=== PATIENT | female | born 2000 | race Caucasian/White ===

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

== ENCOUNTER 2019-07-24 05:30 | Outpatient (RCR) | payer BC ==
[~2019-07-24] VITALS: Ht 170 cm; Wt 61.3 kg
[~2019-07-24 05:30] MED LIST changes: +AMOX-355 PO; -GADOBUTROL 7.5 MMOL/7.5 ML (GADAVIST) VIAL IV ONE; +PRD20T PO
== END 2019-07-24 14:42 | disposition home or self-care (01) ==
LOC: PREOP 05:30
PROVIDERS: ATTEND Obstetrics & Gynecology
DX: Z01.818 Encounter for other preprocedural examination (principal); Z11.59 Encounter for screening for other viral diseases
CPT/HCPCS: 87635

== ENCOUNTER 2019-07-28 06:12 | Day surgery (SDC) | payer BC ==
[~2019-07-28] VITALS: Ht 170 cm; Wt 61.3 kg
[2019-07-28] VITALS (10 sets, daily range): BP systolic 100–111; BP diastolic 63–90
--- OUTSIDE RECORDS SUMMARY | 2019-07-28 06:17 | XMS REPORT ---
Author Author [facility] [facility] [employer] [facility] [employer] [facility] Address [address] [address] Care Team Providers Care Industrial/Organizational Psychologist Name Role Phone LO KEENE DO Unavailable Unavailable ASAD GONZALEZ Unavailable PCP, NONE Unavailable Unavailable QUICK, LON Unavailable Unavailable QUICK, LON Unavailable Unavailable QUICK, LON Unavailable Unavailable MOHAMUD BAIRD DO Unavailable Unavailable Unavailable Unavailable Unavailable Unavailable Unavailable Unavailable Unavailable Unavailable Unavailable Unavailable Allergies Normalized Allergy Reported Date of Reaction(s) Care Provider Facility Allergy Type classification allergen Allergy Onset DA (6 Unclassified No Known Drug 11-07-2012 - no information LO Not Available sources.) Allergies DO JASSI (06081) Medications Medication Ingredient Drug Dose Dates Status Sig Sig Care Class(es) (Normalized) (Original) Provid er amoxicillin Amoxicillin Penicillin- 02-12-19 Complete take 10 Amoxicillin/ Peter 500 mg / / class 19 d tablets by Potassium J Cardiac Monitor clavulanate Clavulanate Antibacteri mouth twice Clav Ba deangelo 125 mg oral al daily (Augmentin (no tablet (1 500-125 phone) source.) Tablet) 1 Each Tablet 1 Each ORAL Twice A Day 10 Tab 02/12/18 predniSONE predniSONE no 40 mg 02-12-19 Complete take 2 Pre dnisone Peter 20 mg oral information 19 d tablets by 20 Mg Tab 40 J Cardiac Monitor tablet (1 mouth once Mg ORAL Abrams source.) daily Daily 6 Tab (no Take 3 phone) tabs(60mg)da moreno, decrease by 1/2 tab(10mg)akil ly. 02/12/18 Problems Active Problems Problem Normalized Date Last Normalized Normalized Provider Fa cility Classification Problem(s) Recorded Problem Problem Sta tus Duration Attention-defi Attention-defi Chronic Active CHERELLE ABRAMS Not Available cit conduct cit (89776) and disruptive hyperactivity behavior disorder, disorders (2 unspecified sources.) type Chronic Bronchitis Episodic Active CHERELLE ABRAMS Not Avail able obstructive Translations: (59232) pulmonary [ BRONCHITIS, disease and NOT SPECIFIED bronchiectasis ACUTE OR (3 sources.) CH] Other upper Chronic Chronic Active ASAD SCHOELING Not Av ailable respiratory ethmoidal MD (06539) infections (2 sinusitis sources.) Translations: [ CHRONIC SPHENOIDAL SINUSITIS] Other Disorder of Chronic Active ASAD SCHOELING Not A vailable endocrine pituitary MD (37676) disorders (1 gland, source.) unspecified Open wounds of Open bite of Episodic Active CHERELLE ABRAMS No t Available extremities (4 left thumb (80579) sources.) without damage to nail, initial encounter Other Other Chronic Active no name no informatio n endocrine disorders of disorders (2 pituitary sources.) gland Disorders Other Chronic Active CHERELLE ABRAMS Not Availab le usually specified (77644) diagnosed in behavioral and infancy emotional childhood or disorders with adolescence (2 onset usually sources.) occurring in childhood and adolescence Past or Other Problems Problem Normalized Date Last Normalized Normalized Provider Fa cility Classification Problem(s) Recorded Problem Problem Sta tus Duration External cause Bitten by no information no information CHERELLE FRITZ Not Available codes: raccoon, (66377) Natural/enviro initial nment (2 encounter sources.) Other Other symptoms Episodic Completed LO Not Raissa ilable connective referable to JASSI , DO (42079) tissue disease joint, lower (3 sources.) leg Unclassified no information no information no information ASAD SCHOELING [employer] [address] (1 source.) [address] [facility] (08967) Procedures The data below is from unstructured sourcesNo procedure information available. Immunizations Normalized Immunization Date Notes Care Provider Facili ty Immunization meningococcal 07-12-2018 no information no name [facility] (groups A, C, Y and - [facility] (91331) W-135) diphtheria toxoid conjugate vaccine (MCV4P) vaccine no information ASAD SCHOELING [address] [address] Translations: [ [facility] vaccine] (01565) Results The data below is from unstructured sourcesNo relevant diagnostic test, laboratory data and/or discharge summary information available. Vital Signs The data below is from unstructured sources Vital Response Date/Time Temperature (Fahrenheit) 97.7 degree s F (97.6 - 99.5) 02/12/2018 5:40pm Temperature (Calculated Celsius) 36. 40625 degrees C (36.4 - 37.5) 02/12/2018 5:40pm Temperature Source Oral 02/12/2018 5:40pm Pulse Rate (Adolescent 12-19yrs) 68 bpm (56 - 106) 02/12/2018 5:40pm O2 Sat by Pulse Oximetry 100 % (88 - 100) 02/12/2018 5:40pm Respiratory Rate (Adolescent 12-19yrs) 18 bpm (15 - 20) 02/12/2018 5:40pm Blood Pressure / Blood Pressure Systolic (Adolescent 12-19yrs) 115 mm Hg (115 - 120) 02/12/2018 5:40pm Pain Numeric Pain Scale 3 5:40pm Height (Feet) 5 feet 09/2018 5:20pm Height (Inches) 4.00 inches 02/12/2018 5:20pm Height (Calculated Centimeters) 162. 312175 cm 02/12/2018 5:20pm Height Method Estimated 02/12/2018 5:20pm Weight (Pounds) 120 pounds 02/12/2018 5:20pm Weight (Calculated Kilograms) 54.431 085 kilograms 02/12/2018 5:20pm Calculated BMI 14.06 09/2018 5:20pm Weight Method Estimated 02/12/2018 5:20pm Interventions No Information Plan of Treatment The data below is from unstructured sources Discharge Date 02/12/18 5:37pm Disposition 01 HOME, SELF-CARE Condition at Discharge Stable Instructions/Education Provided Acut e Bronchitis, Adult (DC) Prescriptions See Medication Section Referrals ASAD GONZALEZ MD Order Date: Primary Care Physician Address: [address] [place] [id number] Additional Instructions/Education 1. Antibiotics and steroids as directed. Return to ER for any concerns. Goals No Information Social History Normalized Code Original Code Date Value no information no information no information Unknown if ever smoked Functional Status The data below is from unstructured sourcesNo functional status information available. Mental Status No Information Encounters Encounter Normalized Encounter Encounter Diagnosis Care Provi tamra Organization Date Type 02-12-2018 Emergency department no information CHERELLE Peña APRN BA DEANGELO no organization name - patient visit Work Phone: 02-12-2018 12-23-2016 Patient encounter no information no name no or ganization name 12-13-2016 Patient encounter no information no name no or ganization name 05-29-2014 Patient encounter no information no name no or ganization name 07-21-2019 Patient encounter no information MOHAMUD Campos [facility] procedure (no phone) [facility] (no phone) 03-07-2019 Patient encounter no information no name no or ganization name - procedure 03-07-2019 07-12-2018 Patient encounter no information no name no or ganization name procedure 02-12-2018 Patient encounter no information no name no or ganization name procedure Medical Equipment No Information Payers Normalized Payer Value [employer] Blue Shield no information [employer] [id number] ([id number]) Advance Directives Directive Response Recor ded Date/Time Advance Directives No 6:45pm Health Care Power of Leather Goods Sales Representative No 11/07/12 6:45pm Organ Donor No 11/07/12 6:45pm Chief Complaint and Reason for Visit Chief Complaint Nasal Problems Reason for Visit Raccoon bite Bronchitis Discharge Instructions No hospital discharge instruction information available. Additional Source Comments This clinical document has been generated using [employer] software that has been certified by the Office of the National Coordinator for Health Information Technology (ONC 15.99.04.3023.Diam.31.00.0.828711) and the National Committee for Web Producer (NCQA, as an eMeasure certified technology). FOR RECORDS PERTAINING TO PATIENTS WHO ARE OR HAVE BEEN ENROLLED IN A CHEMICAL D EPENDENCY/SUBSTANCE ABUSE PROGRAM, SOME INFORMATION MAY BE OMITTED. This clinica l summary was aggregated from multiple sources. Caution should be exercised in using it in the provision of clinical care. This summary normalizes information from multiple sources, and as a consequence, information in this document may ma terially change the coding, format and clinical context of patient data. In luke tion, data may be omitted in some cases. CLINICAL DECISIONS SHOULD BE BASED ON T HE PRIMARY CLINICAL RECORDS. [employer] provides no warranty or guara ntee of the accuracy or completeness of information in this document.The followi ng information is based on time limited clinical information
--- OUTSIDE RECORDS SUMMARY | 2019-07-28 06:17 | XMS REPORT | Continuity of Care Document ---
Author Organization Unknown Address Unknown Phone Unavailable Allergies Active Description Code Type Severity Reaction Onset Reported/Identified Relationship to Patient Clinical Status Yes No Known Drug Allergies [id number] Drug Allergy Unknown N/A 07/21/2019 Medications There is no data. Problems Date Dx Coded Attending Type Code Diagnosis Diagnosed By 01/04/1441 MOHAMUD BAIRD DO Ot Z01.818 ENCOUNTER FOR OTHER PREPROCEDURAL EXAMIN 01/04/1441 MOHAMUD BAIRD DO Ot Z11.59 ENCOUNTER FOR SCREENING FOR OTHER VIRAL 11/07/2012 MARK OLSON Ot 850.11 11/07/2012 MARK OLSON Ot 959.01 11/07/2012 MARK OLSON Ot E000.8 11/07/2012 MARK OLSON Ot E007.7 11/07/2012 MARK OLSON Ot E849.4 11/07/2012 MARK OLSON Ot E917.0 06/04/2014 JASSI LO OLIVEIRA Ot 719.66 07/22/2014 JASSI LO OLIVEIRA F Ot 719.66 12/11/2014 JASSI DO LO Loyda Ot 719.66 03/10/2016 JASSI LO OLIVEIRA Ot 719.66 JOINT SYMPTOM NEC-L/LEG 12/11/2016 JASSI DO LO F Ot 719.66 JOINT SYMPTOM NEC-L/LEG 12/11/2016 JASSI DO LO F Ot 719.66 JOINT SYMPTOM NEC-L/LEG 12/25/2016 ASAD GONZALEZ MD Ot E23.6 OTHER DISORDERS OF PITUITARY GLAND 01/01/2017 ASAD GONZALEZ MD Ot E23.7 DISORDER OF PITUITARY GLAND, UNSPECIFIED 01/01/2017 ASAD GONZALEZ MD Ot J32.2 CHRONIC ETHMOIDAL SINUSITIS 01/01/2017 ASAD GONZALEZ MD Ot J32.3 CHRONIC SPHENOIDAL SINUSITIS 01/04/2017 ASAD GONZALEZ MD Ot E23.6 OTHER DISORDERS OF PITUITARY GLAND 02/12/2018 CHERELLE MCCLAIN APRN Ot F90 .9 ATTENTION-DEFICIT HYPERACTIVITY DISORDER 02/12/2018 CHERELLE MCCLAIN APRN Ot F98 .8 OTH BEHAV/EMOTN DISORD W ONSET USLY OCCU 02/12/2018 CHERELLE MCCLAIN APRN Ot J40 BRONCHITIS, NOT SPECIFIED ACUTE OR CH 02/12/2018 CHERELLE MCCLAIN APRN Ot S61.052A OPEN BITE OF LEFT THUMB WITHOUT DAMAGE T 02/12/2018 CHERELLE MCCLAIN APRN Ot W55.51XA BITTEN BY RACCOON, INITIAL ENCOUNTER 02/14/2018 CHERELLE MCCLAIN APRN Ot F90 .9 ATTENTION-DEFICIT HYPERACTIVITY DISORDER 02/14/2018 CHERELLE MCCLAIN APRN Ot F98 .8 OTH BEHAV/EMOTN DISORD W ONSET USLY OCCU 02/14/2018 CHERELLE MCCLAIN APRN Ot J40 BRONCHITIS, NOT SPECIFIED ACUTE OR CH 02/14/2018 CHERELLE MCCLAIN APRN Ot S61.052A OPEN BITE OF LEFT THUMB WITHOUT DAMAGE T 02/14/2018 CHERELLE MCCLAIN APRN Ot W55.51XA BITTEN BY RACCOON, INITIAL ENCOUNTER Procedures There is no data. Results Test Result Range Coronavirus SARS-CoV-2 SO 2018 - 0 07:50 Coronavirus Ab [Units/volume] in Serum Negative Negative Encounters ACCT No. Visit Date/Time Discharge Status Pt. Type Provider Facility Loc./Unit Complaint [id number] 03/07/2019 08:33:00 03/07/2019 23:59 :00 DIS Outpatient LON VELEZ [id number] 07/12/2018 10:40:00 07/12/2018 23:59: 59 CLS Outpatient LORI SINGH LAC [id number] 07/24/2019 05:30:00 020 14:42:00 DIS Outpatient MOHAMUD BAIRD DO [facility] PREOP CHRONIC PELVIC PAIN [id number] 02/12/2018 17:08:00 019 17:37:00 DIS Emergency CHERELLE MCCLAIN APRN [facility] ER BITE FROM RACOON, ALSO COLD SYMPTOMS [id number] 12/23/2016 10:07:00 017 23:59:59 CLS Outpatient ASAD GONZALEZ MD [facility] RAD E23.7 DISORDER OF PITU ITARY GLAND [id number] 12/13/2016 16:48:00 017 23:59:59 CLS Outpatient ASAD GONZALEZ MD [facility] RAD R51 HEADACHE [id number] 05/29/2014 14:10:00 015 23:59:59 CLS Outpatient LO KEENE DO [facility] RAD MASS POSTERIOR LEFT KNEE [id number] 11/07/2012 18:18:00 013 22:27:00 DIS Emergency MARK OLSON [facility] ER [id number] 07/28/2019 09:45:00 P EN Preadmit MOHAMUD BAIRD DO [facility] SDC CHRONIC PELVIC PAIN
[2019-07-28] MEDS ORDERED: LIDOCAINE PF 1% 5 ML (XYLOCAINE) AMP ONE (06:43)
[2019-07-28] MEDS ORDERED: ONDANSETRON 4 MG/2 ML (SDV) Z0FRAN ONE (06:52)
[2019-07-28] MEDS ORDERED: LIDOCAINE PF 2% 5 ML (XYLOCAINE) VIAL ONE (06:52)
[2019-07-28] MEDS ORDERED: fentaNYL INJECTION 100 MCG/2 ML AMP ONE (06:52)
[2019-07-28] MEDS ORDERED: MIDAZOLAM 2 MG/2 ML (VERSED) VIAL ONE (06:52)
[2019-07-28] MEDS ORDERED: DEXAMETHASONE 10 MG/ML (DECADRON) 1 ML VIAL ONE (06:52)
[2019-07-28] MEDS ORDERED: SEVOFLURANE (ULTANE) 15 ML INHAL SOLN ONE ×4 (06:57→09:35)
[2019-07-28] MEDS ORDERED: LACTATED RINGERS 1,000 ML IV PRN (07:17)
[2019-07-28] MEDS ORDERED: BUPIVACAINE 0.25% 30 ML (SENSORCAINE) VIAL ONE (07:26)
[2019-07-28 07:43] LABS: BASOPHILS % (AUTO) 1 % (0-10); EOSINOPHILS # (AUTO) 0.1 10^3/uL (0.0-0.3); EOSINOPHILS % (AUTO) 3 % (0-10); HEMATOCRIT 36 % (35-52); HEMOGLOBIN 12.5 G/DL (11.5-16.0); LYMPHOCYTES # (AUTO) 1.6 X 10^3 (1.0-4.0); LYMPHOCYTES % (AUTO) 32 % (12-44); MEAN CORPUSCULAR HEMOGLOBIN 31 PG (25-34); MEAN CORPUSCULAR HGB CONC 35 G/DL (32-36); MEAN CORPUSCULAR VOLUME 90 FL (80-99); MEAN PLATELET VOLUME 10.2 FL (7.4-10.4); MONOCYTES # (AUTO) 0.6 X 10^3 (0.0-1.0); MONOCYTES % (AUTO) 13 % (0-12); NEUTROPHILS # (AUTO) 2.6 X 10^3 (1.8-7.8); NEUTROPHILS % (AUTO) 52 % (42-75); PLATELET COUNT 178 10^3/uL (130-400); RED CELL DISTRIBUTION WIDTH 11.6 % (10.0-14.5)
--- NOTE | 2019-07-28 07:46 | Progress Note-Pre Operative ---
Pre-Operative Progress Note H&P Reviewed The H&P was reviewed, patient examined and no changes noted. Date Seen by Provider: Jul 28, 2019 Time Seen by Provider: 08:45 Date H&P Reviewed: Jul 28, 2019 Time H&P Reviewed: 08:45 Pre-Operative Diagnosis: MOHAMUD BUI DO Jul 28, 2019 07:46
[2019-07-28] MEDS ORDERED: D5 LR IV SOLUTION 1,000 ML IV SCH (08:53)
[2019-07-28] MEDS ORDERED: IBUP-1773 PO (08:57)
[2019-07-28] MEDS ORDERED: HYDR-4226 PO (08:57)
[2019-07-28] MEDS ORDERED: proPOfol 200 MG/20 ML (DIPRIVAN) VIAL IV ONE (08:58)
--- NOTE | 2019-07-28 08:59 | Discharge Inst-Women's Service ---
Discharge Inst-Women's Serv Depart Medication/Instructions New, Converted or Re-Newed RX: RX on Chart Problems Reviewed?: Yes Consults/Follow Up Additional Follow Up: Yes Orders/Referrals Dr. Roberts in 7-10 days Activity Activity: Activity as Tolerated Driving Instructions: No Driving for 1 Week NO SMOKING: NO SMOKING Nothing Inside Vagina: No Douching, No Apex, No Tampons Diet Discharge Diet: No Restrictions Symptoms to Report to : Bleeding Excessive, Pain Increased, Fever Over 101 Degrees F, Vaginal Bleeding Increase, Questions/Concerns For Any Problems or Questions: Contact Your Physician Skin/Wound Care Infection Signs and Symptoms: Increased Redness, Foul Odor of Wound, Increased Drainage, Skin Itchy or Has a Rash, Increased Swelling, Temperature Above 101 F Operative Area Clean and Dry: Keep Incision Clean/Dry Stitches/[place]/Dermabond: Dermabond, Care of Stitches Bathing Instructions: MOHAMUD Leon DO Jul 28, 2019 08:59
[2019-07-28] MEDS ORDERED: ONDANSETRON 4 MG/2 ML (SDV) Z0FRAN IVP PRN ×2 (09:00→10:00)
[2019-07-28] MEDS ORDERED: HYDROcodone/APAP 5 MG/325 MG (LORTAB) TAB PO PRN (09:00)
[2019-07-28] MEDS ORDERED: KETOROLAC 30 MG/ML VIAL IVP ONE (09:00)
[2019-07-28] MEDS ORDERED: KETOROLAC 30 MG/ML VIAL ONE (09:14)
[2019-07-28] MEDS ORDERED: ROCURONIUM 10 MG/ML 5 ML SYRINGE IV ONE (09:14)
[2019-07-28] MEDS ORDERED: NEOSTIGMINE 3 MG/3 ML VIAL ONE (09:35)
[2019-07-28] MEDS ORDERED: GLYCOPYRROLATE 0.2 MG/ML (ROBINUL) 2 ML VIAL ONE (09:35)
[2019-07-28] MEDS ORDERED: morphine INJ 10 MG/ML 1ML (SYR OR VIAL) IVP ONE (10:00)
[2019-07-28] MEDS ORDERED: PROMETHAZINE INJ 25 MG/ML (PHENERGAN) AMP IVP ONE (10:00)
--- NOTE | 2019-07-28 11:10 | NUR ---
TO AMB SURG FROM PAR PER CART. AWAKE, SLIGHTLY DROWSY. DENIES COMPLAINTS OF PAIN OR NAUSEA. LARGE BANDAIDS X2 D/I TO LAP ABD SURGICAL SITES. V-PAD IN PLACE, DRY. PO FLUIDS PROVIDED.
--- NOTE | 2019-07-28 11:19 | Anesthesia-General Post-Op ---
General Patient Condition Mental Status/LOC: Same as Preop Cardiovascular: Satisfactory Nausea/Vomiting: Absent Respiratory: Satisfactory Pain: Controlled Complications: Absent Post Op Complications Complications None Follow Up Care/Instructions Patient Instructions None needed. Anesthesia/Patient Condition Patient Condition Patient is doing well, no complaints, stable vital signs, no apparent adverse anesthesia problems. No complications reported per nursing. DOMENICO DECKER CRNA Jul 28, 2019 11:19
--- NOTE | 2019-07-28 11:45 | NUR ---
ALERT,TAKING PO FLUIDS WITHOUT PROBLEM. NO CHANGE IN SITE OR PAIN ASSESSMENTS. V-PAD REMAINS DRY. REQUESTING DISMISSAL.
--- NOTE | 2019-07-28 17:20 | OPERATIVE REPORT ---
DATE OF SERVICE: 07/28/2019 PREOPERATIVE DIAGNOSIS: A 27-year-old female with chronic pelvic pain. POSTOPERATIVE DIAGNOSIS: A 27-year-old female with chronic pelvic pain. PROCEDURE: Diagnostic laparoscopy. SURGEON: Mohamud Baird DO ANESTHESIA: General endotracheal. ESTIMATED BLOOD LOSS: Minimal. URINE OUTPUT: 300 mL. FLUIDS: 800 mL lactated Ringer's solution. FINDINGS: A grossly normal appearing external female genitalia with evidence of IUD string in normal position. Grossly normal appearing uterus, bilateral fallopian tubes and ovaries. Grossly normal appearing upper abdominal anatomy. SPECIMEN SENT: None. INDICATIONS FOR PROCEDURE: This 19-year-old female is a patient who presented to my office for chronic pelvic pain. She reports having severely painful periods since onset of menses. They have been getting significantly worse. She was recently started on IUD, which has controlled her bleeding pattern and some of her pain, but she is still experiencing a significant amount of pain. 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 I discussed with the patient a diagnostic procedure before moving forward with any other further treatment, the patient has never had any type of confirmation of endometriosis, all my suspicion based on clinical symptoms. Risks of procedure were discussed with the patient in detail including risk of bleeding, infection, damage to surrounding structures including, but not limited to bowel, bladder, ureter, kidneys, possible need for reoperation, postoperative complications that may occur, postoperative recovery timeframe, risk from anesthesia and even . Everything was discussed with the patient in detail, consent was obtained in the preoperative area, the patient was taken to the operating room. OPERATIVE REPORT IN DETAIL: Once in the operating room, anesthesia was found to be adequate, placed in dorsal lithotomy position, prepped and draped in normal sterile fashion where time out was performed. A Costa catheter was placed using sterile technique. A weighted speculum inserted to the patient's vagina. Right angle retractor was used to visualize the cervix and it was grasped using a long Allis clamp. The IUD strings are noted. I do not want to displace the IUD. Therefore, I did not place a Kronner uterine manipulator. I removed all the instruments except for the Allis clamp was used on the anterior lip of the cervix. I performed a change of gloves and took my attention to the abdomen where infraumbilically I infiltrated this area using 0.25% Marcaine to make a 5 mm incision, directed Veress needle through the incision, intraperitoneal placement was confirmed using saline drop test. I proceeded with insufflation using CO2 gas and opening pressure of 3 mmHg was noted. I proceeded to maximum pressure of 15 mmHg, at which point I removed the Veress needle and introduced a 5 mm blunt laparoscopic trocar. Once this was in place, I am able to confirm intraperitoneal placement using the laparoscope. A brief scan of the upper abdominal anatomy appears grossly normal. Normal appearing liver, gallbladder, stomach, omentum appears normal as well. There was no evidence of upper abdominal disease or endometriosis. I then had the patient placed in steep Trendelenburg were I am able to visualize all the pelvic anatomy, which appears grossly normal as well. The fallopian tubes, ovaries, ovarian fossa, vesicouterine peritoneum, posterior cul-de-sac all are without any signs of endometriosis; however, the uterus is slightly hyperemic. There is no evidence of endometriosis on the serosal surface. I then performed a gentle washing of the posterior peritoneum after I placed a second trocar suprapubically. This is another 5 mm trocar that was placed in similar fashion. There is some free fluid in the pelvis, likely due to a recently ruptured ovarian cyst and ovulation. There is evidence of this with a right-sided corpus luteum cyst of the ovary. After which, there was no active bleeding noted from anywhere where I have irrigated. I removed the suprapubic trocar under direct visualization of laparoscope. The infraumbilical trocar was left in place to release insufflation and to introduce 10 mL of 0.25% Marcaine into the peritoneal cavity for postoperative pain management. I then released insufflation from this as well. This trocars were removed. The skin was reapproximated using Dermabond. The Costa catheter was removed. The patient tolerated the procedure well and sent to recovery in stable condition. Lap and sponge counts were correct at the end of the procedure. Instruments counts correct as well. Job ID: [id number] DocumentID: [id number] Dictated Date: 07/28/2019 11:27:33 Training Development Director Date: 07/28/2019 17:20:19 Dictated By: MOHAMUD BAIRD DO
== END 2019-07-28 11:45 | disposition home or self-care (01) ==
LOC: SDC 06:12
PROVIDERS: ATTEND Obstetrics & Gynecology
DX: R10.2 Pelvic and perineal pain (principal); G89.29 Other chronic pain; N94.4 Primary dysmenorrhea; K21.9 Gastro-esophageal reflux disease without esophagitis; G44.84 Primary exertional headache; T83.83XA Hemorrhage due to genitourinary prosthetic devices, implants and grafts, initial encounter; Z79.899 Other long term (current) drug therapy
CPT/HCPCS: 36415; 84703; 85025; 86850; 86900; 86901; 87081

== ENCOUNTER → 2020-08-02 | Outpatient (CLI) | payer BC ==
[~2020-08-02] MED LIST changes: +HYDR-4226 PO; +IBUP-1773 PO
--- NOTE | 2020-08-02 16:13 | Diagnostic Imaging Report ---
PROCEDURE: US right lower extremity venous. TECHNIQUE: Multiple real-time grayscale images were obtained over the right lower extremity in various projections. Additional spectral analysis and color Doppler duplex images were also obtained. INDICATION: Right calf pain and swelling EXAMINATION: Grayscale and color Doppler evaluation of the deep veins of the right lower extremity were performed with waveform analysis. FINDINGS: Continuous venous flow is present. No intraluminal filling defect is identified. There is normal compressibility and response to augmentation. No abnormal perivascular fluid collection is identified. There is heterogeneous echogenic focus in the calf muscle corresponding to patient swelling measuring approximately 2.8 x 2.6 x 9 cm. This may represent intramuscular hematoma. IMPRESSION: Probable intramuscular calf hematoma which corresponds to patient's swelling. Follow-up study could be performed to document resolution. There is no ultrasound evidence of right lower extremity deep venous thrombosis. Dictated by: Dictated on workstation # [id number]
== END ==
LOC: RAD 15:00
DX: M79.662 Pain in left lower leg (principal); M79.89 Other specified soft tissue disorders